=== PATIENT | male | born 1995 | race Two or more races ===

== ENCOUNTER 2017-07-10 14:29 | Emergency (ER) | payer BC ==
[2017-07-10] MEDS ORDERED: DIPH,PERTUS(ACELL)TETVAC-LF 0.5 ML VIAL IM ONE (14:55)
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
[2017-07-10 15:44] VITALS: BP 130/68; PULSE 98; RESP 18; TEMP 98.7
== END 2017-07-10 15:54 | disposition home or self-care (01) ==
LOC: EC 14:29
DX: S61.412A Laceration without foreign body of left hand, initial encounter (principal); S61.411A Laceration without foreign body of right hand, initial encounter; Z23 Encounter for immunization; V89.2XXA Person injured in unspecified motor-vehicle accident, traffic, initial encounter; Y92.410 Unspecified street and highway as the place of occurrence of the external cause
CPT/HCPCS: 90471; 90715; 99282

== ENCOUNTER 2019-05-03 21:48 | Emergency (ER) | payer BC ==
[2019-05-03 21:55] VITALS: RESP 18; TEMP 99.7
--- NOTE | 2019-05-03 22:17 | XR ---
EXAMINATION TYPE: XR forearm LT DATE OF EXAM: 05/03/2019 COMPARISON: NONE HISTORY: Forearm pain TECHNIQUE: 2 views FINDINGS: Radius and ulna appear intact. I see no fracture nor dislocation. Joint spaces are normal. IMPRESSION: Negative left forearm exam.
--- NOTE | 2019-05-03 22:33 | ED ---
Upper Extremity HPI - General Chief Complaint: Extremity Injury, Upper Stated Complaint: arm pain Time Seen by Provider: 05/03/19 21:56 Source: patient Mode of arrival: ambulatory Limitations: no limitations - History of Present Illness Initial Comments: 23-year-old male presented for left forearm pain. Patient states the drill fall onto his left dorsal aspect of forearm on Wednesday when he moved a ladder the drill fall from the top striking the forearm. Patient states there is a bruise there. Patient states the pain is persistent and there is a lump. He denies any swelling of the arm. Denies numbness tingling loss sensation or pallor. ADmit to pain with pronation/supination. Patient denies any injury to the hand and wrist elbow. Patient denies any lacerations the patient's. Remaining the system negative. Upon arrival patient appears well signs of acute distress. Denies any other areas of injury including head injury. - Related Data Home Medications Medication Instructions Recorded Confirmed No Known Home Medications 07/10/17 07/10/17 Allergies Allergy/AdvReac Type Severity Reaction Status Date / Time No Known Allergies Allergy Verified 07/10/17 14:47 Review of Systems ROS Statement: Those systems with pertinent positive or pertinent negative responses have been documented in the HPI. ROS Other: All systems not noted in ROS Statement are negative. Past Medical History Past Medical History: No Reported History History of Any Multi-Drug Resistant Organisms: None Reported Past Surgical History: No Surgical Hx Reported Past Psychological History: No Psychological Hx Reported Smoking Status: Current some day smoker Past Alcohol Use History: Occasional Past Drug Use History: Marijuana General Exam - General Exam Comments Initial Comments: General: The patient is awake and alert, in no distress, and does not appear acutely ill. Eye: Pupils are equal, round and reactive to light, extra-ocular movements are intact. No nystagmus. There is normal conjunctiva bilaterally. No signs of icterus. Cardiovascular: There is a regular rate and rhythm. No murmur, rub or gallop is appreciated. Respiratory: Lungs are clear to auscultation, respirations are non-labored, breath sounds are equal. No wheezes, stridor, rales, or rhonchi. Musculoskeletal: Normal ROM, no tenderness wrist and elbow. Strength 5/5. Sensation intact. Radial pulses equal bilaterally 2+. Able to make the fingers crossed thumbs up okay sign and a posterior small digit and thumb Neurological: A&O x 3. CN II-XII intact grossly, There are no obvious motor or sensory deficits. Coordination appears grossly intact. Speech is normal. Skin: Skin is warm and dry and no rashes. Raised area of the dorsum of the left forearm roughly 3x2cm. no redness, tender to touch. No laceration abrasion. Psychiatric: Cooperative, appropriate mood & affect, normal judgment. Limitations: no limitations Course Vital Signs 05/03/19 05/03/19 21:53 22:38 Temperature 99.7 F H Pulse Rate 116 H 85 Respiratory 18 18 Rate Blood Pressure 141/81 130/61 O2 Sat by Pulse 100 97 Oximetry Medical Decision Making - Medical Decision Making 24-year-old male presenting for blunt trauma to the left forearm. X-ray negative for acute process. Neurovascularly intact. Contusion present on physical examination. Patient be discharged with primary care follow-up. Return primary's discussed patient agreeable and discharged appearing well with rice instruction Disposition Clinical Impression: Contusion of left forearm Disposition: HOME SELF-CARE Condition: Good Instructions (If sedation given, give patient instructions): Contusion in Adults (ED) Additional Instructions: Please use medication as discussed. Please follow-up with family doctor in the next 2 days. Please return to emergency room if the symptoms increase or worsen or for any other concerns. Is patient prescribed a controlled substance at d/c from ED?: No Referrals: Ashley Johnston MD [Primary Care Provider] - 1-2 days Time of Disposition: 22:34
[2019-05-03 22:38] VITALS: BP 130/61; PULSE 85
== END 2019-05-03 22:41 | disposition home or self-care (01) ==
LOC: EC 21:48
DX: S50.12XA Contusion of left forearm, initial encounter (principal); F17.200 Nicotine dependence, unspecified, uncomplicated; W18.09XA Striking against other object with subsequent fall, initial encounter
CPT/HCPCS: 99283

== ENCOUNTER 2019-09-21 14:59 | Inpatient (IN) | payer BC ==
[2019-09-21 15:35] LABS: Glucose,Whole Blood 131 mg/dL (75-99)
--- NOTE | 2019-09-21 15:38 | ED ---
General Adult HPI - General Chief complaint: Fall Stated complaint: Fall off of roof Time Seen by Provider: 09/21/19 15:26 Source: patient Mode of arrival: ambulatory Limitations: no limitations - History of Present Illness Initial comments: Dictation was produced using [employer] dictation software. please excuse any grammatical, word or spelling errors. Chief Complaint: 24-year-old male presents after fall. History of Present Illness: 24-year-old male he presents after fall. 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 Patient states he had the wind knocked out of him. He states that his symptoms are improved however he does have persistent left lateral back pain and left-sided chest pain. Patient has a numbness and paresthesias. Patient denies any medical problems. No surgical history. Denies any abdominal pain. Patient denies any shortness of breath currently. The ROS documented in this emergency department record has been reviewed and confirmed by me. Those systems with pertinent positive or negative responses have been documented in the HPI. All other systems are other negative and/or noncontributory. PHYSICAL EXAM: General Impression: Alert and oriented x3, not in acute distress, c-collar in place HEENT: Normocephalic atraumatic, extra-ocular movements intact, pupils equal and reactive to light bilaterally, mucous membranes moist. Cardiovascular: Heart regular rate and rhythm, S1&S2 audible, no murmurs, rubs or gallops Chest: Lungs clear to auscultation bilaterally, no rhonchi, no wheeze, no rales Abdomen: Bowel sounds present, abdomen soft, non-tender, non-distended, no organomegaly Musculoskeletal: Pulses present and equal in all extremities, no peripheral edema, no mid C-spine tenderness, no step-offs crepitus deformities to the spine, tenderness to palpation over the left lateral chest Motor: no focal d eficits noted : No blood at the meatus, no perineal ecchymoses Neurological: CN II-XII grossly intact, no focal motor or sensory deficits noted Skin: Intact with no visualized rashes Psych: Normal affect and mood ED course: 24 yo Male presents after fall approximately 25 feet. Patient's activated level II trauma. Vital signs upon arrival shows heart rate of 114, respiratory signs within acceptable limits. No gross deformity seen on physical examination. Patient was seen and evaluated the ATLS protocol. FAST exam was negative Laboratory evaluation obtained. Leukocytosis of 20.5 x 2 secondary to stress. Rest of CBC is unremarkable. Coag panel negative. Metabolic panel shows mild lactic acidosis 2.6. AST is 70 from probably mild drinking. Rest of labs are nonacute. Serum alcohol is negative. CT of the chest abdomen pelvis shows multiple left-sided rib fractures with mild hemothorax. Computed tomography scan of the head and C-spine is unremarkable. Patient is Dr. Yu was went except patient's care. Patient given IV analgesia. Patient will be admitted. EKG interpretation: Ventricular rate 97, normal sinus rhythm, DC interval 156, QRS 96, QTC 436. No DC prolongation, no QTC prolongation, no ST or T-wave changes noted. Overall, this EKG is unremarkable - Related Data Home Medications Medication Instructions Recorded Confirmed No Known Home Medications 07/10/17 07/10/17 Allergies Allergy/AdvReac Type Severity Reaction Status Date / Time No Known Allergies Allergy Verified 09/21/19 15:06 Review of Systems ROS Statement: Those systems with pertinent positive or pertinent negative responses have been documented in the HPI. ROS Other: All systems not noted in ROS Statement are negative. Past Medical History Past Medical History: No Reported History History of Any Multi-Drug Resistant Organisms: None Reported Past Surgical History: No Surgical Hx Reported Past Psychological History: No Psychological Hx Reported Smoking Status: Current some day smoker Past Alcohol Use History: Occasional Past Drug Use History: Marijuana General Exam Limitations: no limitations Course Vital Signs 09/21/19 15:06 Temperature 98.3 F Pulse Rate 114 H Respiratory 20 Rate Blood Pressure 129/58 O2 Sat by Pulse 100 Oximetry Medical Decision Making - Lab Data Result diagrams: 09/21/19 15:22 09/21/19 15:22 Lab Results 09/21/19 09/21/19 09/21/19 Range/Units 15:20 15:22 15:22 WBC 20.5 H (3.8-10.6) k/uL RBC 5.26 (4.30-5.90) m/uL Hgb 16.3 (13.0-17.5) gm/dL Hct 46.1 (39.0-53.0) % MCV 87.7 (80.0-100.0) fL MCH 30.9 (25.0-35.0) pg MCHC 35.2 (31.0-37.0) g/dL RDW 12.1 (11.5-15.5) % Plt Count 328 (150-450) k/uL Neutrophils % 64 % Lymphocytes % 28 % Monocytes % 4 % Eosinophils % 2 % Basophils % 0 % Neutrophils # 13.1 H (1.3-7.7) k/uL Lymphocytes # 5.8 H (1.0-4.8) k/uL Monocytes # 0.7 (0-1.0) k/uL Eosinophils # 0.4 (0-0.7) k/uL Basophils # 0.1 (0-0.2) k/uL PT (9.0-12.0) sec INR (<1.2) APTT (22.0-30.0) sec Sodium 138 (137-145) mmol/L Potassium 3.7 (3.5-5.1) mmol/L Chloride 102 (98-107) mmol/L Carbon Dioxide 25 (22-30) mmol/L Anion Gap 11 mmol/L BUN 17 (9-20) mg/dL Creatinine 0.72 (0.66-1.25) mg/dL Est GFR (CKD-EPI)AfAm >90 (>60 ml/min/1.73 sqM) Est GFR (CKD-EPI)NonAf >90 (>60 ml/min/1.73 sqM) Glucose 118 H (74-99) mg/dL POC Glucose (mg/dL) (75-99) mg/dL POC Glu [employer] ID Plasma Lactic Acid Christian (0.7-2.0) mmol/L Calcium 9.2 (8.4-10.2) mg/dL Total Bilirubin 1.0 (0.2-1.3) mg/dL AST 70 H (17-59) U/L ALT 47 (4-49) U/L Alkaline Phosphatase 88 (38-126) U/L Total Creatine Kinase (55-170) U/L CK-MB (CK-2) (0.0-2.4) ng/mL CK-MB (CK-2) Rel Index Troponin I (0.000-0.034) ng/mL Total Protein 8.1 (6.3-8.2) g/dL Albumin 4.8 (3.5-5.0) g/dL Amylase 88 (30-110) U/L Lipase 56 (23-300) U/L Serum Alcohol <10 mg/dL Blood Type Blood Type Confirm O Positive Blood Type Recheck Bld Type Recheck Status Antibody Screen Spec Expiration Date 09/21/19 09/21/19 09/21/19 Range/Units 15:22 15:22 15:22 WBC (3.8-10.6) k/uL RBC (4.30-5.90) m/uL Hgb (13.0-17.5) gm/dL Hct (39.0-53.0) % MCV (80.0-100.0) fL MCH (25.0-35.0) pg MCHC (31.0-37.0) g/dL RDW (11.5-15.5) % Plt Count (150-450) k/uL Neutrophils % % Lymphocytes % % Monocytes % % Eosinophils % % Basophils % % Neutrophils # (1.3-7.7) k/uL Lymphocytes # (1.0-4.8) k/uL Monocytes # (0-1.0) k/uL Eosinophils # (0-0.7) k/uL Basophils # (0-0.2) k/uL PT (9.0-12.0) sec INR (<1.2) APTT (22.0-30.0) sec Sodium (137-145) mmol/L Potassium (3.5-5.1) mmol/L Chloride (98-107) mmol/L Carbon Dioxide (22-30) mmol/L Anion Gap mmol/L BUN (9-20) mg/dL Creatinine (0.66-1.25) mg/dL Est GFR (CKD-EPI)AfAm (>60 ml/min/1.73 sqM) Est GFR (CKD-EPI)NonAf (>60 ml/min/1.73 sqM) Glucose (74-99) mg/dL POC Glucose (mg/dL) (75-99) mg/dL POC Glu [employer] ID Plasma Lactic Acid Christian 3.6 H* (0.7-2.0) mmol/L Calcium (8.4-10.2) mg/dL Total Bilirubin (0.2-1.3) mg/dL AST (17-59) U/L ALT (4-49) U/L Alkaline Phosphatase (38-126) U/L Total Creatine Kinase 714 H (55-170) U/L CK-MB (CK-2) 9.9 H (0.0-2.4) ng/mL CK-MB (CK-2) Rel Index 1.4 Troponin I <0.012 (0.000-0.034) ng/mL Total Protein (6.3-8.2) g/dL Albumin (3.5-5.0) g/dL Amylase (30-110) U/L Lipase (23-300) U/L Serum Alcohol mg/dL Blood Type O Positive Blood Type Confirm Blood Type Recheck No Previous Record Bld Type Recheck Status CABO Indicated Antibody Screen NEGATIVE Spec Expiration Date 09/24/2019 - 232109/21/19 09/21/19 Range/Units 15:33 15:57 WBC (3.8-10.6) k/uL RBC (4.30-5.90) m/uL Hgb (13.0-17.5) gm/dL Hct (39.0-53.0) % MCV (80.0-100.0) fL MCH (25.0-35.0) pg MCHC (31.0-37.0) g/dL RDW (11.5-15.5) % Plt Count (150-450) k/uL Neutrophils % % Lymphocytes % % Monocytes % % Eosinophils % % Basophils % % Neutrophils # (1.3-7.7) k/uL Lymphocytes # (1.0-4.8) k/uL Monocytes # (0-1.0) k/uL Eosinophils # (0-0.7) k/uL Basophils # (0-0.2) k/uL PT 10.2 (9.0-12.0) sec INR 1.0 (<1.2) APTT 21.2 L (22.0-30.0) sec Sodium (137-145) mmol/L Potassium (3.5-5.1) mmol/L Chloride (98-107) mmol/L Carbon Dioxide (22-30) mmol/L Anion Gap mmol/L BUN (9-20) mg/dL Creatinine (0.66-1.25) mg/dL Est GFR (CKD-EPI)AfAm (>60 ml/min/1.73 sqM) Est GFR (CKD-EPI)NonAf (>60 ml/min/1.73 sqM) Glucose (74-99) mg/dL POC Glucose (mg/dL) 131 H (75-99) mg/dL POC Glu [employer] Balbir Villanueva Plasma Lactic Acid Christian (0.7-2.0) mmol/L Calcium (8.4-10.2) mg/dL Total Bilirubin (0.2-1.3) mg/dL AST (17-59) U/L ALT (4-49) U/L Alkaline Phosphatase (38-126) U/L Total Creatine Kinase (55-170) U/L CK-MB (CK-2) (0.0-2.4) ng/mL CK-MB (CK-2) Rel Index Troponin I (0.000-0.034) ng/mL Total Protein (6.3-8.2) g/dL Albumin (3.5-5.0) g/dL Amylase (30-110) U/L Lipase (23-300) U/L Serum Alcohol mg/dL Blood Type Blood Type Confirm Blood Type Recheck Bld Type Recheck Status Antibody Screen Spec Expiration Date Disposition Clinical Impression: Fall, Hemothorax on left, Rib fracture Disposition: ADMITTED IP TO THIS [facility] Condition: Fair Referrals: Ashley Johnston MD [Primary Care Provider] - 1-2 days Decision Time: 17:29
--- NOTE | 2019-09-21 15:45 | XR ---
EXAMINATION TYPE: XR pelvis AP view DATE OF EXAM: 09/21/2019 CLINICAL HISTORY: Pelvic pain after fall TECHNIQUE: A single AP view of the pelvis is obtained. COMPARISON: None. FINDINGS: There is no acute fracture/dislocation evident in the pelvis. The hip and sacroiliac join ts appear symmetric and unremarkable. The overlying soft tissue appears unremarkable. IMPRESSION: There is no acute fracture or dislocation in the pelvis.
--- NOTE | 2019-09-21 15:47 | XR ---
EXAMINATION TYPE: XR chest 1V portable DATE OF EXAM: 09/21/2019 COMPARISON: NONE HISTORY: Chest pain after fall TECHNIQUE: Single frontal view of the chest is obtained. FINDINGS: There is an acute displaced fracture of the lateral margins of ribs 3 on the left. No pneu mothorax is seen. Cardiomediastinal silhouette is within normal limits. No focal consolidation, pleur al effusion or pneumothorax. IMPRESSION: Acute displaced left lateral rib 3 fracture. No additional acute cardiopulmonary process seen.
[2019-09-21 15:50] LABS: Basophils # (A) 0.1 k/uL (0-0.2); Basophils % (A) 0 %; Eosinophils # (A) 0.4 k/uL (0-0.7); Eosinophils % (A) 2 %; HCT 46.1 % (39.0-53.0); HGB 16.3 gm/dL (13.0-17.5); Lymphocytes # (A) 5.8 k/uL (1.0-4.8); Lymphocytes % (A) 28 %; MCH 30.9 pg (25.0-35.0); MCHC 35.2 g/dL (31.0-37.0); MCV 87.7 fL (80.0-100.0); Monocytes # (A) 0.7 k/uL (0-1.0); Monocytes % (A) 4 %; Neutrophils # (A) 13.1 k/uL (1.3-7.7); Neutrophils % (A) 64 %; Platelet Count 328 k/uL (150-450); RBC 5.26 m/uL (4.30-5.90); RDW 12.1 % (11.5-15.5); WBC 20.5 k/uL (3.8-10.6)
[2019-09-21] MEDS ORDERED: MORPHINE SULFATE 4 MG/ML SYRINGE IV STA (15:51)
[2019-09-21] MEDS ORDERED: ONDANSETRON 4 MG/2 ML VIAL IVP STA (15:51)
[2019-09-21 16:05] LABS: ALT 47 U/L (4-49); AST 70 U/L (17-59); African American GFR (CKD) >90 (>60 ml/min/1.73 sqM); Albumin 4.8 g/dL (3.5-5.0); Alcohol <10 mg/dL; Alkaline Phosphatase 88 U/L (38-126); Amylase 88 U/L (30-110); Anion Gap 11 mmol/L; Blood Urea Nitrogen 17 mg/dL (9-20); Calcium 9.2 mg/dL (8.4-10.2); Carbon Dioxide 25 mmol/L (22-30); Chloride 102 mmol/L (98-107); Glucose 118 mg/dL (74-99); Non-African American GFR(CKD) >90 (>60 ml/min/1.73 sqM); Potassium 3.7 mmol/L (3.5-5.1); Sodium 138 mmol/L (137-145); Total Protein 8.1 g/dL (6.3-8.2)
[2019-09-21 16:08] LABS: Creatine Kinase 714 U/L (55-170)
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
[2019-09-21 16:21] LABS: Creatine Kinase MB 9.9 ng/mL (0.0-2.4); Troponin I <0.012 ng/mL (0.000-0.034)
[2019-09-21] MEDS ORDERED: ONDANSETRON 4 MG/2 ML VIAL IVP PRN (16:37)
[2019-09-21] MEDS ORDERED: LACTATED RINGERS 1,000 ML IV ONE (16:37)
[2019-09-21] MEDS ORDERED: NALOXONE 0.4 MG/ML 1 ML VIAL IV PRN ×2 (16:37→17:25)
[2019-09-21] MEDS ORDERED: ALPRAZolam 0.25 MG TAB PO PRN (16:37)
--- NOTE | 2019-09-21 16:49 | P.GSHP ---
History of Present Illness H&P Date: 09/21/19 Chief Complaint: Fall with rib fracture 24-year-old male presents to the ER as a priority to trauma. Patient was driven by his family to the hospital after he fell from a roof while cleaning the gutters. Patient states he felt 20-25 feet and landed on the dirt and grass. Patient hit the left side of his body on the ground. Patient complaining of pain in the left lateral chest and left shoulder. No LOC. No alcohol use per patient. Patient denies any numbness or tingling. No motor or sensory deficits. Some discomfort with inspiration but no shortness of breath. Patient had a chest x-ray showing rib fracture. CT chest abdomen and pelvis shows fractures of second third and seventh rib with small hemothorax. CT brain and C-spine looks good. Pelvis x-ray looks good. Has an abrasion left lateral knee but no pain there. - Review of Systems Comment: The patient denies any acute changes in vision or hearing, no dysphagia or odynophagia, no shortness of breath, no dysuria or hematuria, no headache, no runny nose, no rectal bleeding or melena, no unexplained weight loss Past Medical History Past Medical History: No Reported History History of Any Multi-Drug Resistant Organisms: None Reported Past Surgical History: No Surgical Hx Reported Past Psychological History: No Psychological Hx Reported Smoking Status: Current some day smoker Past Alcohol Use History: Occasional Past Drug Use History: Marijuana Medications and Allergies Home Medications Medication Instructions Recorded Confirmed Type No Known Home Medications 07/10/17 07/10/17 History Allergies Allergy/AdvReac Type Severity Reaction Status Date / Time No Known Allergies Allergy Verified 09/21/19 15:06 Surgical - Exam Vital Signs Temp Pulse Resp BP Pulse Ox 98.3 F 114 H 20 129/58 100 09/21/19 15:06 09/21/19 15:06 09/21/19 15:06 09/21/19 15:06 09/21/19 15:06 Physical exam: General: Well-developed, well-nourished HEENT: Normocephalic, sclerae nonicteric, subtle swelling left maxillary region without tenderness, pupils equal and reactive Chest: Equal breath sounds, left-sided chest tenderness Abdomen: Nontender, nondistended Extremities: No edema, no motor or sensory deficits noted, small abrasion left lateral knee Neuro: Alert and oriented Results - Labs 09/21/19 15:22 09/21/19 15:22 Abnormal Lab Results - Last 24 Hours (Table) 09/21/19 09/21/19 09/21/19 Range/Units 15:22 15:22 15:22 WBC 20.5 H (3.8-10.6) k/uL Neutrophils # 13.1 H (1.3-7.7) k/uL Lymphocytes # 5.8 H (1.0-4.8) k/uL Glucose 118 H (74-99) mg/dL POC Glucose (mg/dL) (75-99) mg/dL Plasma Lactic Acid Christian (0.7-2.0) mmol/L AST 70 H (17-59) U/L Total Creatine Kinase 714 H (55-170) U/L CK-MB (CK-2) 9.9 H (0.0-2.4) ng/mL 09/21/19 09/21/19 Range/Units 15:22 15:33 WBC (3.8-10.6) k/uL Neutrophils # (1.3-7.7) k/uL Lymphocytes # (1.0-4.8) k/uL Glucose (74-99) mg/dL POC Glucose (mg/dL) 131 H (75-99) mg/dL Plasma Lactic Acid Christian 3.6 H* (0.7-2.0) mmol/L AST (17-59) U/L Total Creatine Kinase (55-170) U/L CK-MB (CK-2) (0.0-2.4) ng/mL Diabetes panel 09/21/19 Range/Units 15:22 Sodium 138 (137-145) mmol/L Potassium 3.7 (3.5-5.1) mmol/L Chloride 102 (98-107) mmol/L Carbon Dioxide 25 (22-30) mmol/L BUN 17 (9-20) mg/dL Creatinine 0.72 (0.66-1.25) mg/dL Glucose 118 H (74-99) mg/dL Calcium 9.2 (8.4-10.2) mg/dL AST 70 H (17-59) U/L ALT 47 (4-49) U/L Alkaline Phosphatase 88 (38-126) U/L Total Protein 8.1 (6.3-8.2) g/dL Albumin 4.8 (3.5-5.0) g/dL Calcium panel 09/21/19 Range/Units 15:22 Calcium 9.2 (8.4-10.2) mg/dL Albumin 4.8 (3.5-5.0) g/dL Pituitary panel 09/21/19 Range/Units 15:22 Sodium 138 (137-145) mmol/L Potassium 3.7 (3.5-5.1) mmol/L Chloride 102 (98-107) mmol/L Carbon Dioxide 25 (22-30) mmol/L BUN 17 (9-20) mg/dL Creatinine 0.72 (0.66-1.25) mg/dL Glucose 118 H (74-99) mg/dL Calcium 9.2 (8.4-10.2) mg/dL Adrenal panel 09/21/19 Range/Units 15:22 Sodium 138 (137-145) mmol/L Potassium 3.7 (3.5-5.1) mmol/L Chloride 102 (98-107) mmol/L Carbon Dioxide 25 (22-30) mmol/L BUN 17 (9-20) mg/dL Creatinine 0.72 (0.66-1.25) mg/dL Glucose 118 H (74-99) mg/dL Calcium 9.2 (8.4-10.2) mg/dL Total Bilirubin 1.0 (0.2-1.3) mg/dL AST 70 H (17-59) U/L ALT 47 (4-49) U/L Alkaline Phosphatase 88 (38-126) U/L Total Protein 8.1 (6.3-8.2) g/dL Albumin 4.8 (3.5-5.0) g/dL Assessment and Plan (1) Hemothorax on left Narrative/Plan: 24-year-old male with multiple left-sided rib fractures and small hemothorax. Will admit to the hospital for observation. Recheck chest x-ray tomorrow. Consults to anesthesia, hospitalist, drastic surgery. GI and DVT prophylaxis. Continue analgesics. Continue pulmonary toilet with incentive spirometry. Current Visit: Yes Status: Acute Code(s): J94.2 - HEMOTHORAX SNOMED Code(s): 65128206
[2019-09-21 16:50] LABS: Prothrombin Time 10.2 sec (9.0-12.0)
[2019-09-21 16:52] LABS: Partial Thromboplastin Time 21.2 sec (22.0-30.0)
[2019-09-21] MEDS ORDERED: LIDOCAINE 5% PATCH TOPICAL STA (17:27)
[2019-09-21] MEDS ORDERED: KETOROLAC 30 MG/ML 1 ML VIAL IVP SCH (18:00)
--- NOTE | 2019-09-21 19:36 | P.PAINCN ---
History of Present Illness - Reason for Consult Consult date: 09/21/19 - History of Present Illness This is 24 years old male with a chief complaint of chest wall pain, on the left side, pain started after he fell from the roof while he was cleaning the gutters, computed tomography scan of the chest showed that he had second and third and seventh rib fractures with a small pneumothorax, a Ubrch reported that his chest pain mainly in the posterior aspect of the chest on the left side and it radiated to the front, pain increased with deep breathing Past Medical History Past Medical History: No Reported History History of Any Multi-Drug Resistant Organisms: None Reported Past Surgical History: No Surgical Hx Reported Past Psychological History: No Psychological Hx Reported Smoking Status: Current some day smoker Past Alcohol Use History: Occasional Past Drug Use History: Marijuana Medications and Allergies Home Medications Medication Instructions Recorded Confirmed Type No Known Home Medications 07/10/17 09/21/19 History Allergies Allergy/AdvReac Type Severity Reaction Status Date / Time No Known Allergies Allergy Verified 09/21/19 18:07 Physical Exam Vitals: Vital Signs Temp Pulse Resp BP Pulse Ox 09/21/19 15:06 98.3 F 114 H 20 129/58 100 Intake and Output 09/21/19 09/21/19 09/21/19 06:59 14:59 22:59 Other: Weight 77.111 kg Physical Examinations : -Constitutiona : Cooperative , not in acute distress . -HEENT : nech : supple , no Lymphadenopathy , normal thyroid size . : eyes : no ptosis , no icterus, no photophobia . : ENT : normal of hearing , normal oropharynx , no Thrush . - Respiratory : Chest clear to auscultations Bilaterally , severe tenderness over the left side of the chest wall - Cardiovascula : regular rate and rhythem , S1 , S2 , no S3 , no S4. - Gastrointestina : abdomen soft no tenderness , bowel sounds , no organomegally . - Genitourinary : Defferred . - neurologic : Cranial nerve II to XII intact , no focal neurological deffecit . -psychatric : alert , oriented X 3 , appropriate affect , intact judgment and insight . -Lymphatic : no Lymphadenopathy . - musculoskeltal : Lumber spine moter stegnth lower extremities ,thigh and legs 5/5 Right side , 5/5 Left side Results CBC & Chem 7: 09/21/19 15:22 09/21/19 15:22 Labs: Abnormal Lab Results - Last 24 Hours (Table) 09/21/19 09/21/19 09/21/19 Range/Units 15:22 15:22 15:22 WBC 20.5 H (3.8-10.6) k/uL Neutrophils # 13.1 H (1.3-7.7) k/uL Lymphocytes # 5.8 H (1.0-4.8) k/uL APTT (22.0-30.0) sec Glucose 118 H (74-99) mg/dL POC Glucose (mg/dL) (75-99) mg/dL Plasma Lactic Acid Christian (0.7-2.0) mmol/L AST 70 H (17-59) U/L Total Creatine Kinase 714 H (55-170) U/L CK-MB (CK-2) 9.9 H (0.0-2.4) ng/mL 09/21/19 09/21/19 09/21/19 Range/Units 15:22 15:33 15:57 WBC (3.8-10.6) k/uL Neutrophils # (1.3-7.7) k/uL Lymphocytes # (1.0-4.8) k/uL APTT 21.2 L (22.0-30.0) sec Glucose (74-99) mg/dL POC Glucose (mg/dL) 131 H (75-99) mg/dL Plasma Lactic Acid Christian 3.6 H* (0.7-2.0) mmol/L AST (17-59) U/L Total Creatine Kinase (55-170) U/L CK-MB (CK-2) (0.0-2.4) ng/mL Assessment and Plan Plan: Assessment and plan= chest wall pain secondary to multiple rib fractures on the left side Recommended continue [place] 5/325 every 4-6 hours when necessary, increase Toradol to 30 mg every 6 hours when necessary Lidoderm patch 5% 12 hours on 12 hours off If the above measures did not control the pain appropriately patient will be good candidate for thoracic epidural for pain control Reevaluated the patient's tomorrow morning Time with Patient: Greater than 30 PQRS Measure Charge Sheet PQRS Narrative: Smoking Status Current some day smoker Blood Pressure 129/58 Pain Intensity 9 Pain Scale Used Numeric (1 - 10) Scale Used Numeric (1 - 10) Home Medications: Ambulatory Orders No Known Home Medications 07/10/17
[2019-09-21] MEDS: HYDROcodone/APAP 5-325MG 1 EACH TAB PO PRN (22:35)
[2019-09-21] MEDS: BACITRACIN 500 UNIT/GM OINT 28.4 GM TUBE TOPICAL SCH (22:38)
[2019-09-22] MEDS: HEPARIN SODIUM,PORCINE 5,000 UNIT/ML 1 ML VIAL SQ SCH ×2 (01:03→08:27)
[2019-09-22] MEDS: KETOROLAC 30 MG/ML 1 ML VIAL IVP SCH ×3 (01:03→11:35)
[2019-09-22] MEDS: DOCUSATE 100 MG CAP PO SCH ×2 (01:04→08:27)
[2019-09-22] MEDS: HYDROcodone/APAP 5-325MG 1 EACH TAB PO PRN ×3 (04:59→15:32)
[2019-09-22 07:07] LABS: Appearance,Urine Clear (Clear); Bilirubin,Urine Negative (Negative); Blood,Urine Negative (Negative); Color,Urine Yellow; Glucose,Urine (UA) Negative (Negative); Ketones,Urine Negative (Negative); Leukocyte Esterase,Urine Negative (Negative); Mucus,Urine Many /hpf; Nitrite,Urine Negative (Negative); PH, Urine 6.5 (5.0-8.0); Protein,Urine 1+ (Negative); RBC,Urine <1 /hpf (0-5); Squamous Epithelial Cell,Urine <1 /hpf (0-4); Urobilinogen,Urine <2.0 mg/dL (<2.0); WBC,Urine 5 /hpf (0-5)
--- NOTE | 2019-09-22 07:18 | XR ---
EXAMINATION TYPE: XR chest 2V DATE OF EXAM: 09/22/2019 COMPARISON: 09/21/2019 CT and x-ray HISTORY: Fall from ladder. Follow-up for pneumothorax. TECHNIQUE: Frontal and lateral views of the chest are obtained. FINDINGS: There is redemonstration of an acute displaced fracture of rib 3 on the left. The acute no ndisplaced fracture of the anterior left second rib and left seventh rib are better seen on CT are no t visualized radiographically as there are nondisplaced. The tiny adjacent pneumothorax (approximatel y 3 mm on the prior CT) is not visualized on x-ray. Scattered bibasilar linear atelectasis is seen wi th suboptimal lung volumes. IMPRESSION: Interval development of bibasilar subsegmental atelectasis. Redemonstration of a displac ed acute left third rib fracture. Knee punctate adjacent pneumothorax on CT is not visualized on x-ra y.
[2019-09-22 07:20] LABS: Amphetamine Screen,Urine Not Detected (NotDetected); Benzodiazepines Screen,Urine Detected (NotDetected); Cocaine Screen,Urine Not Detected (NotDetected); Opiate Screen,Urine Detected (NotDetected); Phencyclidine Screen,Urine Not Detected (NotDetected); Urn Cannabinoid Scrn Detected (NotDetected)
[2019-09-22 07:21] LABS: Barbiturate Screen,Urine Not Detected (NotDetected); Methadone Screen, Urine Not Detected (NotDetected); Oxycodone Screen, Urine Not Detected (NotDetected); Tricyclic Antidepressant,Urine Not Detected (NotDetected)
[2019-09-22 07:46] LABS: ALT 59 U/L (4-49); AST 134 U/L (17-59); African American GFR (CKD) >90 (>60 ml/min/1.73 sqM); Albumin 3.9 g/dL (3.5-5.0); Alkaline Phosphatase 66 U/L (38-126); Anion Gap 8 mmol/L; Blood Urea Nitrogen 13 mg/dL (9-20); Calcium 8.8 mg/dL (8.4-10.2); Carbon Dioxide 25 mmol/L (22-30); Chloride 105 mmol/L (98-107); Glucose 92 mg/dL (74-99); Non-African American GFR(CKD) >90 (>60 ml/min/1.73 sqM); Potassium 3.8 mmol/L (3.5-5.1); Sodium 138 mmol/L (137-145); Total Bilirubin 2.4 mg/dL (0.2-1.3); Total Protein 7.1 g/dL (6.3-8.2)
[2019-09-22 07:53] LABS: Basophils % (A) 0 %; Eosinophils # (A) 0.1 k/uL (0-0.7); Eosinophils % (A) 1 %; HCT 41.9 % (39.0-53.0); HGB 14.6 gm/dL (13.0-17.5); Lymphocytes # (A) 2.1 k/uL (1.0-4.8); Lymphocytes % (A) 20 %; MCH 30.4 pg (25.0-35.0); MCHC 34.8 g/dL (31.0-37.0); MCV 87.6 fL (80.0-100.0); Mean Platelet Volume 8.3; Monocytes # (A) 0.8 k/uL (0-1.0); Monocytes % (A) 8 %; Neutrophils # (A) 7.4 k/uL (1.3-7.7); Neutrophils % (A) 69 %; Platelet Count 248 k/uL (150-450); RBC 4.78 m/uL (4.30-5.90); RDW 12.1 % (11.5-15.5); WBC 10.7 k/uL (3.8-10.6)
[2019-09-22] MEDS: BACITRACIN 500 UNIT/GM OINT 28.4 GM TUBE TOPICAL SCH (08:27)
[2019-09-22] MEDS ORDERED: PANTOPRAZOLE 40 MG/10 ML VIAL IV SCH (09:00)
[2019-09-22 09:40] VITALS: TEMP 97.5
--- NOTE | 2019-09-22 10:43 | P.PN ---
<Kristi Elmore - Last Filed: 09/22/19 10:37> Subjective Progress Note Date: 09/22/19 CHIEF COMPLAINT: Trauma with rib fracture HISTORY OF PRESENT ILLNESS: Patient examined this morning at the bedside. Patient states his pain has tolerable at this time. Mostly in the left side of his chest. Patient is up ambulating in his room. He reports taking a shower this morning. Denies abdominal pain. Tolerating diet. Repeat x-ray today reveals interval development of bibasilar subsegmental atelectasis. Redemonstration of displaced acute left third rib fracture. Tiny adjacent pneumothorax seen on prior CAT scan not visualized on current x-ray. PHYSICAL EXAM: VITAL SIGNS: Reviewed. GENERAL: Well-developed in no acute distress. HEENT: No sclera icterus. Extraocular movements grossly intact. Moist buccal mucosa. Head is normocephalic. CHEST: No respiratory distress. Left sided chest tenderness. ABDOMEN: Soft. Nondistended. Nontender. NEUROLOGIC: Alert and oriented. Cranial nerves II through XII grossly intact. ASSESSMENT: 1. Trauma, status post fall 2. Multiple left-sided rib fractures 3. Small left hemothorax PLAN: -Continue current diet -Continue current pain management regimen -CTS consulted. Await evaluation -Incentive spirometer -Activity as tolerated -Possible discharge home this afternoon versus tomorrow Nurse practitioner note has been reviewed by physician. Signing provider agrees with the documented findings, assessment, and plan of care. Objective - Vital Signs Vital signs: Vital Signs Temp 97.5 F L 09/22/19 08:00 Pulse 76 09/22/19 08:00 Resp 18 09/22/19 08:00 BP 121/67 09/22/19 08:00 Pulse Ox 99 09/22/19 08:00 Intake & Output 09/21/19 09/22/19 09/22/19 18:59 06:59 18:59 Output Total 75 Balance -75 Weight 77.111 kg 75.5 kg Output: Urine 75 Other: Voiding Method Urinal Urinal # Voids 0 1 - Labs CBC & Chem 7: 09/22/19 06:20 09/22/19 06:20 Labs: Abnormal Lab Results - Last 24 Hours (Table) 09/21/19 09/21/19 09/21/19 Range/Units 06:55 15:22 15:22 WBC 20.5 H (3.8-10.6) k/uL Neutrophils # 13.1 H (1.3-7.7) k/uL Lymphocytes # 5.8 H (1.0-4.8) k/uL APTT (22.0-30.0) sec Creatinine (0.66-1.25) mg/dL Glucose 118 H (74-99) mg/dL POC Glucose (mg/dL) (75-99) mg/dL Plasma Lactic Acid Christian (0.7-2.0) mmol/L Total Bilirubin (0.2-1.3) mg/dL AST 70 H (17-59) U/L ALT (4-49) U/L Total Creatine Kinase (55-170) U/L CK-MB (CK-2) (0.0-2.4) ng/mL Urine Protein 1+ H (Negative) Urine Mucus Many H (None) /hpf Urine Opiates Screen Detected H (NotDetected) U Benzodiazepines Scrn Detected H (NotDetected) U Marijuana (THC) Screen Detected H (NotDetected) 09/21/19 09/21/19 09/21/19 Range/Units 15:22 15:22 15:33 WBC (3.8-10.6) k/uL Neutrophils # (1.3-7.7) k/uL Lymphocytes # (1.0-4.8) k/uL APTT (22.0-30.0) sec Creatinine (0.66-1.25) mg/dL Glucose (74-99) mg/dL POC Glucose (mg/dL) 131 H (75-99) mg/dL Plasma Lactic Acid Christian 3.6 H* (0.7-2.0) mmol/L Total Bilirubin (0.2-1.3) mg/dL AST (17-59) U/L ALT (4-49) U/L Total Creatine Kinase 714 H (55-170) U/L CK-MB (CK-2) 9.9 H (0.0-2.4) ng/mL Urine Protein (Negative) Urine Mucus (None) /hpf Urine Opiates Screen (NotDetected) U Benzodiazepines Scrn (NotDetected) U Marijuana (THC) Screen (NotDetected) 09/21/19 09/22/19 09/22/19 Range/Units 15:57 06:20 06:20 WBC 10.7 H (3.8-10.6) k/uL Neutrophils # (1.3-7.7) k/uL Lymphocytes # (1.0-4.8) k/uL APTT 21.2 L (22.0-30.0) sec Creatinine 0.54 L (0.66-1.25) mg/dL Glucose (74-99) mg/dL POC Glucose (mg/dL) (75-99) mg/dL Plasma Lactic Acid Christian (0.7-2.0) mmol/L Total Bilirubin 2.4 H (0.2-1.3) mg/dL AST 134 H (17-59) U/L ALT 59 H (4-49) U/L Total Creatine Kinase (55-170) U/L CK-MB (CK-2) (0.0-2.4) ng/mL Urine Protein (Negative) Urine Mucus (None) /hpf Urine Opiates Screen (NotDetected) U Benzodiazepines Scrn (NotDetected) U Marijuana (THC) Screen (NotDetected) <Roberto Yu - Last Filed: 09/22/19 14:48> Objective - Vital Signs Vital signs: Vital Signs Temp 97.5 F L 09/22/19 08:00 Pulse 76 09/22/19 08:00 Resp 18 09/22/19 08:00 BP 121/67 09/22/19 08:00 Pulse Ox 99 09/22/19 08:00 Intake & Output 09/21/19 09/22/19 09/22/19 18:59 06:59 18:59 Intake Total 0 Output Total 75 Balance -75 Weight 77.111 kg 75.5 kg Intake: Oral 0 Output: Urine 75 Other: Voiding Method Urinal Urinal # Voids 0 2 - Labs CBC & Chem 7: 09/22/19 06:20 09/22/19 06:20 Labs: Abnormal Lab Results - Last 24 Hours (Table) 09/21/19 09/21/19 09/21/19 Range/Units 06:55 15:22 15:22 WBC 20.5 H (3.8-10.6) k/uL Neutrophils # 13.1 H (1.3-7.7) k/uL Lymphocytes # 5.8 H (1.0-4.8) k/uL APTT (22.0-30.0) sec Creatinine (0.66-1.25) mg/dL Glucose 118 H (74-99) mg/dL POC Glucose (mg/dL) (75-99) mg/dL Plasma Lactic Acid Christian (0.7-2.0) mmol/L Total Bilirubin (0.2-1.3) mg/dL AST 70 H (17-59) U/L ALT (4-49) U/L Total Creatine Kinase (55-170) U/L CK-MB (CK-2) (0.0-2.4) ng/mL Urine Protein 1+ H (Negative) Urine Mucus Many H (None) /hpf Urine Opiates Screen Detected H (NotDetected) U Benzodiazepines Scrn Detected H (NotDetected) U Marijuana (THC) Screen Detected H (NotDetected) 09/21/19 09/21/19 09/21/19 Range/Units 15:22 15:22 15:33 WBC (3.8-10.6) k/uL Neutrophils # (1.3-7.7) k/uL Lymphocytes # (1.0-4.8) k/uL APTT (22.0-30.0) sec Creatinine (0.66-1.25) mg/dL Glucose (74-99) mg/dL POC Glucose (mg/dL) 131 H (75-99) mg/dL Plasma Lactic Acid Christian 3.6 H* (0.7-2.0) mmol/L Total Bilirubin (0.2-1.3) mg/dL AST (17-59) U/L ALT (4-49) U/L Total Creatine Kinase 714 H (55-170) U/L CK-MB (CK-2) 9.9 H (0.0-2.4) ng/mL Urine Protein (Negative) Urine Mucus (None) /hpf Urine Opiates Screen (NotDetected) U Benzodiazepines Scrn (NotDetected) U Marijuana (THC) Screen (NotDetected) 09/21/19 09/22/19 09/22/19 Range/Units 15:57 06:20 06:20 WBC 10.7 H (3.8-10.6) k/uL Neutrophils # (1.3-7.7) k/uL Lymphocytes # (1.0-4.8) k/uL APTT 21.2 L (22.0-30.0) sec Creatinine 0.54 L (0.66-1.25) mg/dL Glucose (74-99) mg/dL POC Glucose (mg/dL) (75-99) mg/dL Plasma Lactic Acid Christian (0.7-2.0) mmol/L Total Bilirubin 2.4 H (0.2-1.3) mg/dL AST 134 H (17-59) U/L ALT 59 H (4-49) U/L Total Creatine Kinase (55-170) U/L CK-MB (CK-2) (0.0-2.4) ng/mL Urine Protein (Negative) Urine Mucus (None) /hpf Urine Opiates Screen (NotDetected) U Benzodiazepines Scrn (NotDetected) U Marijuana (THC) Screen (NotDetected) Assessment and Plan (1) Hemothorax on left Current Visit: Yes Status: Acute Code(s): J94.2 - HEMOTHORAX SNOMED Code(s): 15028776
--- NOTE | 2019-09-22 12:52 | P.CONS ---
History of Present Illness - Reason for Consult ,leukocytosis - History of Present Illness patient is a pleasant 24-year-old gentleman had a fall from a ladder and found to have acute fractures patient is admitted to trauma service patient does have leukocytosis denied any fever chills chest x-ray did show seventh rib fracture along with second and third of fractures and a small hemothorax. CT of the bra in and C-spine are within normal limits pelvic x-ray did not show any pelvic fractures. Patient is still having pain but be fairly well controlled on oral medications. Patient is able to take fairly good deep breaths. Although he does have pleuritic chest pain Review of Systems REVIEW OF SYSTEMS: CONSTITUTIONAL: No fever, no malaise, no fatigue. HEENT: No recent visual problems or hearing problems. Denied any sore throat. CARDIOVASCULAR: No orthopnea, PND, no palpitations, no syncope. PULMONARY: No shortness of breath, no cough, no hemoptysis. GASTROINTESTINAL: No diarrhea, no nausea, no vomiting, no abdominal pain. NEUROLOGICAL: No headaches, no weakness, no numbness. HEMATOLOGICAL: Denies any bleeding or petechiae. GENITOURINARY: Denies any burning micturition, frequency, or urgency. MUSCULOSKELETAL/RHEUMATOLOGICAL: Denies any joint pain, swelling, or any muscle pain. ENDOCRINE: Denies any polyuria or polydipsia. The rest of the 14-point review of systems is negative. Past Medical History Past Medical History: No Reported History History of Any Multi-Drug Resistant Organisms: None Reported Past Surgical History: No Surgical Hx Reported Past Psychological History: No Psychological Hx Reported Smoking Status: Current some day smoker Past Alcohol Use History: Occasional Past Drug Use History: Marijuana Medications and Allergies Home Medications Medication Instructions Recorded Confirmed Type Hydrocodone/Acetaminophen [[place] 1 tab PO Q6HR PRN #10 tab 09/22/19 Rx 5-325] Allergies Allergy/AdvReac Type Severity Reaction Status Date / Time No Known Allergies Allergy Verified 09/21/19 18:07 Physical Exam Vitals: Vital Signs Temp Pulse Pulse Resp BP BP Pulse Ox 09/22/19 08:00 97.5 F L 76 18 121/67 99 09/22/19 04:00 91 18 135/77 98 09/22/19 00:00 98.8 F 72 89 18 129/90 118/78 98 09/21/19 21:00 98.0 F 105 H 18 127/84 100 09/21/19 20:00 98 18 119/73 100 09/21/19 19:00 98 18 118/82 100 09/21/19 15:06 98.3 F 114 H 20 129/58 100 Intake and Output 09/21/19 09/22/19 09/22/19 22:59 06:59 14:59 Output Total 75 Balance -75 Output: Urine 75 Other: Voiding Method Urinal Urinal # Voids 0 1 Weight 77.111 kg 75.5 kg PHYSICAL EXAMINATION: GENERAL: The patient is alert and oriented x3, not in any acute distress. Well developed, well nourished. HEENT: Pupils are round and equally reacting to light. EOMI. No scleral icterus. No conjunctival pallor. Normocephalic, atraumatic. No pharyngeal erythema. No thyromegaly. I'll bruising in the left maxillary area CARDIOVASCULAR: S1 and S2 present. No murmurs, rubs, or gallops. PULMONARY: Chest is clear to auscultation, no wheezing or crackles. ABDOMEN: Soft, nontender, nondistended, normoactive bowel sounds. No palpable organomegaly. MUSCULOSKELETAL: No joint swelling or deformity. EXTREMITIES: No cyanosis, clubbing, or pedal edema. NEUROLOGICAL: Gross neurological examination did not reveal any focal deficits. SKIN: No rashes. Results CBC & Chem 7: 09/22/19 06:20 09/22/19 06:20 Labs: Abnormal Lab Results - Last 24 Hours (Table) 09/21/19 09/21/19 09/21/19 Range/Units 06:55 15:22 15:22 WBC 20.5 H (3.8-10.6) k/uL Neutrophils # 13.1 H (1.3-7.7) k/uL Lymphocytes # 5.8 H (1.0-4.8) k/uL APTT (22.0-30.0) sec Creatinine (0.66-1.25) mg/dL Glucose 118 H (74-99) mg/dL POC Glucose (mg/dL) (75-99) mg/dL Plasma Lactic Acid Christian (0.7-2.0) mmol/L Total Bilirubin (0.2-1.3) mg/dL AST 70 H (17-59) U/L ALT (4-49) U/L Total Creatine Kinase (55-170) U/L CK-MB (CK-2) (0.0-2.4) ng/mL Urine Protein 1+ H (Negative) Urine Mucus Many H (None) /hpf Urine Opiates Screen Detected H (NotDetected) U Benzodiazepines Scrn Detected H (NotDetected) U Marijuana (THC) Screen Detected H (NotDetected) 09/21/19 09/21/19 09/21/19 Range/Units 15:22 15:22 15:33 WBC (3.8-10.6) k/uL Neutrophils # (1.3-7.7) k/uL Lymphocytes # (1.0-4.8) k/uL APTT (22.0-30.0) sec Creatinine (0.66-1.25) mg/dL Glucose (74-99) mg/dL POC Glucose (mg/dL) 131 H (75-99) mg/dL Plasma Lactic Acid Christian 3.6 H* (0.7-2.0) mmol/L Total Bilirubin (0.2-1.3) mg/dL AST (17-59) U/L ALT (4-49) U/L Total Creatine Kinase 714 H (55-170) U/L CK-MB (CK-2) 9.9 H (0.0-2.4) ng/mL Urine Protein (Negative) Urine Mucus (None) /hpf Urine Opiates Screen (NotDetected) U Benzodiazepines Scrn (NotDetected) U Marijuana (THC) Screen (NotDetected) 09/21/19 09/22/19 09/22/19 Range/Units 15:57 06:20 06:20 WBC 10.7 H (3.8-10.6) k/uL Neutrophils # (1.3-7.7) k/uL Lymphocytes # (1.0-4.8) k/uL APTT 21.2 L (22.0-30.0) sec Creatinine 0.54 L (0.66-1.25) mg/dL Glucose (74-99) mg/dL POC Glucose (mg/dL) (75-99) mg/dL Plasma Lactic Acid Christian (0.7-2.0) mmol/L Total Bilirubin 2.4 H (0.2-1.3) mg/dL AST 134 H (17-59) U/L ALT 59 H (4-49) U/L Total Creatine Kinase (55-170) U/L CK-MB (CK-2) (0.0-2.4) ng/mL Urine Protein (Negative) Urine Mucus (None) /hpf Urine Opiates Screen (NotDetected) U Benzodiazepines Scrn (NotDetected) U Marijuana (THC) Screen (NotDetected) Assessment and Plan Plan: -fall with fracture and primary contusion patient pain is better controlled and patient is feeling well probably will be discharged later today. -Marijuana use regular: Counseling was provided -leukocytosis secondary to fall no evidence of infection at this time no further testing is necessary.
--- NOTE | 2019-09-22 14:53 | P.DS ---
Providers Date of admission: 09/21/19 16:37 Expected date of discharge: 09/22/19 Attending physician: Roberto Yu Consults: 09/21/19 16:37 Consult Physician Routine Consulting Provider: Cristiane Dhillon Consult Reason/Comments: Hemothorax, rib fracture Do you want consulting provider notified?: Yes Consult Physician Routine Consulting Provider: Jazzy Noguera Consult Reason/Comments: Medical management Do you want consulting provider notified?: Yes Consult to Anesthesia Stat Consulting Provider: Anesthesia,Services Consult Reason/Comments: Rib fractures Primary care physician: Ashley Johnston - Discharge Diagnosis(es) (1) Hemothorax on left Please refer to history and physical and progress note from today's visit. Patient admitted after a fall. Was found have 3 rib fractures on the left-hand side with a small hemopneumothorax. Patient's pain is much improved. He would like to go home today. Only mild discomfort with coughing and sneezing. Spoke with consultants. He is cleared to go. Chest x-ray will be ordered for next week. He will follow-up with thoracic surgery next week as well. Patient told to come back to the hospital with any complaints of shortness of breath or syncopal episodes. Current Visit: Yes Status: Acute Patient Condition at Discharge: Fair Plan - Discharge Summary New Discharge Prescriptions: New Hydrocodone/Acetaminophen [[place] 5-325] 1 tab PO Q6HR PRN #10 tab PRN Reason: Pain Discharge Medication List Hydrocodone/Acetaminophen [[place] 5-325] 1 tab PO Q6HR PRN #10 tab 09/22/19 [Rx] Follow up Appointment(s)/Referral(s): Ashley Johnston MD [Primary Care Provider] - 1-2 days Ambulatory/Diagnostic Orders: XR chest 2V [RAD.AMB] Location: None Selected Patient Instructions/Handouts: Rib Fracture (DC)
--- NOTE | 2019-09-22 15:03 | P.GSCN ---
History of Present Illness Consult date: 09/22/19 Reason for Consult: Hemothorax, rib fracture Requesting physician: Roberto Yu History of present illness: This is a 24-year-old gentleman who follows on an outpatient basis with Dr. Johnston. He has no real medical history other than occasional marijuana and EtOH use. Apparently yesterday he was up on the roof cleaning gutters and fell off the roof approximately 20-25 feet landing on a dirt and grass. He hit the left side of his body on the ground. He noticed pain in the left lateral chest and shoulder area. He denied any loss of consciousness. His only real complaint was pain with deep inspiration, no other aggravating or alleviating factors. He presented to [facility] emergency room for evaluation and treatment. Chest x-ray demonstrated displaced left lateral rib fractures. CT of the chest demonstrated displaced left anterolateral third rib with adjacent tiny hemothorax, nondisplaced fracture of the anterior left second rib, and minimally displaced fracture of the left posterior seventh rib. He was admitted for further treatment and monitoring with consultation placed to internal medicine, anesthesia for pain control, and Dr. Dhillon from cardiothoracic surgery for fracture and hemothorax management. Review of Systems Review of systems was completed and was negative except as noted in the HPI Past Medical History Past Medical History: No Reported History History of Any Multi-Drug Resistant Organisms: None Reported Past Surgical History: No Surgical Hx Reported Past Psychological History: No Psychological Hx Reported Smoking Status: Current some day smoker Past Alcohol Use History: Occasional Past Drug Use History: Marijuana - Past Family History Father Family Medical History: No Reported History Mother Family Medical History: No Reported History Medications and Allergies Home Medications Medication Instructions Recorded Confirmed Type Hydrocodone/Acetaminophen [[place] 1 tab PO Q6HR PRN #10 tab 09/22/19 Rx 5-325] Allergies Allergy/AdvReac Type Severity Reaction Status Date / Time No Known Allergies Allergy Verified 09/21/19 18:07 Surgical - Exam Vital Signs Temp Pulse Resp BP Pulse Ox 98.3 F 114 H 20 129/58 100 09/21/19 15:06 09/21/19 15:06 09/21/19 15:06 09/21/19 15:06 09/21/19 15:06 - General Does still complain of mild left-sided pleuritic chest pain but states well controlled on current medication well developed, well nourished, no distress - Eyes PERRL, normal ocular movement - ENT no hearing loss - Neck no masses, no bruits, trachea midline - Respiratory Lungs sounds clear bilaterally. Respirations even, nonlabored, no paradoxical chest movement with respirations. Currently on room air with oxygen saturation 99%. Able to achieve 2000 mL on his incentive spirometry. - Cardiovascular S1, S2 present. Regular rate and rhythm, sinus rhythm on telemetry. Palpable peripheral pulses bilaterally. No edema present. No calf pain or tenderness noted. - Abdomen Abdomen: soft, non tender, bowel sounds - Genitourinary Deferred - Rectum Deferred - Integumentary Abrasions present to the left side of his face and left knee - Neurologic normal coordination, normal sensation - Musculoskeletal normal gait, normal posture - Psychiatric oriented to time, oriented to person, oriented to place, speech is normal, memory intact Results - Labs 09/22/19 06:20 09/22/19 06:20 Abnormal Lab Results - Last 24 Hours (Table) 09/21/19 09/21/19 09/21/19 Range/Units 06:55 15:22 15:22 WBC 20.5 H (3.8-10.6) k/uL Neutrophils # 13.1 H (1.3-7.7) k/uL Lymphocytes # 5.8 H (1.0-4.8) k/uL APTT (22.0-30.0) sec Creatinine (0.66-1.25) mg/dL Glucose 118 H (74-99) mg/dL POC Glucose (mg/dL) (75-99) mg/dL Plasma Lactic Acid Christian (0.7-2.0) mmol/L Total Bilirubin (0.2-1.3) mg/dL AST 70 H (17-59) U/L ALT (4-49) U/L Total Creatine Kinase (55-170) U/L CK-MB (CK-2) (0.0-2.4) ng/mL Urine Protein 1+ H (Negative) Urine Mucus Many H (None) /hpf Urine Opiates Screen Detected H (NotDetected) U Benzodiazepines Scrn Detected H (NotDetected) U Marijuana (THC) Screen Detected H (NotDetected) 09/21/19 09/21/19 09/21/19 Range/Units 15:22 15:22 15:33 WBC (3.8-10.6) k/uL Neutrophils # (1.3-7.7) k/uL Lymphocytes # (1.0-4.8) k/uL APTT (22.0-30.0) sec Creatinine (0.66-1.25) mg/dL Glucose (74-99) mg/dL POC Glucose (mg/dL) 131 H (75-99) mg/dL Plasma Lactic Acid Christian 3.6 H* (0.7-2.0) mmol/L Total Bilirubin (0.2-1.3) mg/dL AST (17-59) U/L ALT (4-49) U/L Total Creatine Kinase 714 H (55-170) U/L CK-MB (CK-2) 9.9 H (0.0-2.4) ng/mL Urine Protein (Negative) Urine Mucus (None) /hpf Urine Opiates Screen (NotDetected) U Benzodiazepines Scrn (NotDetected) U Marijuana (THC) Screen (NotDetected) 09/21/19 09/22/19 09/22/19 Range/Units 15:57 06:20 06:20 WBC 10.7 H (3.8-10.6) k/uL Neutrophils # (1.3-7.7) k/uL Lymphocytes # (1.0-4.8) k/uL APTT 21.2 L (22.0-30.0) sec Creatinine 0.54 L (0.66-1.25) mg/dL Glucose (74-99) mg/dL POC Glucose (mg/dL) (75-99) mg/dL Plasma Lactic Acid Christian (0.7-2.0) mmol/L Total Bilirubin 2.4 H (0.2-1.3) mg/dL AST 134 H (17-59) U/L ALT 59 H (4-49) U/L Total Creatine Kinase (55-170) U/L CK-MB (CK-2) (0.0-2.4) ng/mL Urine Protein (Negative) Urine Mucus (None) /hpf Urine Opiates Screen (NotDetected) U Benzodiazepines Scrn (NotDetected) U Marijuana (THC) Screen (NotDetected) Diabetes panel 09/21/19 09/22/19 Range/Units 15:22 06:20 Sodium 138 138 (137-145) mmol/L Potassium 3.7 3.8 (3.5-5.1) mmol/L Chloride 102 105 (98-107) mmol/L Carbon Dioxide 25 25 (22-30) mmol/L BUN 17 13 (9-20) mg/dL Creatinine 0.72 0.54 L (0.66-1.25) mg/dL Glucose 118 H 92 (74-99) mg/dL Calcium 9.2 8.8 (8.4-10.2) mg/dL AST 70 H 134 H (17-59) U/L ALT 47 59 H (4-49) U/L Alkaline Phosphatase 88 66 (38-126) U/L Total Protein 8.1 7.1 (6.3-8.2) g/dL Albumin 4.8 3.9 (3.5-5.0) g/dL Calcium panel 09/21/19 09/22/19 Range/Units 15: 06:20 Calcium 9.2 8.8 (8.4-10.2) mg/dL Albumin 4.8 3.9 (3.5-5.0) g/dL Pituitary panel 09/21/19 09/22/19 Range/Units 15:22 06:20 Sodium 138 138 (137-145) mmol/L Potassium 3.7 3.8 (3.5-5.1) mmol/L Chloride 102 105 (98-107) mmol/L Carbon Dioxide 25 25 (22-30) mmol/L BUN 17 13 (9-20) mg/dL Creatinine 0.72 0.54 L (0.66-1.25) mg/dL Glucose 118 H 92 (74-99) mg/dL Calcium 9.2 8.8 (8.4-10.2) mg/dL Adrenal panel 09/21/19 09/22/19 Range/Units 15:22 06:20 Sodium 138 138 (137-145) mmol/L Potassium 3.7 3.8 (3.5-5.1) mmol/L Chloride 102 105 (98-107) mmol/L Carbon Dioxide 25 25 (22-30) mmol/L BUN 17 13 (9-20) mg/dL Creatinine 0.72 0.54 L (0.66-1.25) mg/dL Glucose 118 H 92 (74-99) mg/dL Calcium 9.2 8.8 (8.4-10.2) mg/dL Total Bilirubin 1.0 2.4 H (0.2-1.3) mg/dL AST 70 H 134 H (17-59) U/L ALT 47 59 H (4-49) U/L Alkaline Phosphatase 88 66 (38-126) U/L Total Protein 8.1 7.1 (6.3-8.2) g/dL Albumin 4.8 3.9 (3.5-5.0) g/dL - Imaging Chest x-ray: report reviewed, image reviewed CT scan - chest: report reviewed, image reviewed Assessment and Plan Assessment: 1. Left-sided rib fractures with small hemothorax, status post fall from the roof. 2. Occasional EtOH and marijuana use, no alcohol present on admission Plan: The patient was seen and examined at the bedside with Dr. Dhillon. Chart/diagnostics were reviewed. At this time no surgical intervention is warranted, patient may be discharged to home from cardiothoracic surgery standpo int. May follow up in the office next week for continued monitoring. Medical management per primary, trauma services. Thank you Dr. Yu for this consult, please call us with any further questions Time with Patient: Greater than 30
[2019-09-22 15:38] VITALS: BP 135/85; PULSE 79; RESP 16
== END 2019-09-22 16:41 | disposition home or self-care (01) | DRG 200 ==
LOC: EC 14:59 → 3SCARD 16:37
PROVIDERS: ADMIT Surgery; ATTEND Surgery
DX: S27.2XXA Traumatic hemopneumothorax, initial encounter (principal); E87.2 Acidosis; J98.11 Atelectasis; S22.42XA Multiple fractures of ribs, left side, initial encounter for closed fracture; D72.829 Elevated white blood cell count, unspecified; F17.200 Nicotine dependence, unspecified, uncomplicated; S80.212A Abrasion, left knee, initial encounter; S00.81XA Abrasion of other part of head, initial encounter; W13.2XXA Fall from, out of or through roof, initial encounter
CPT/HCPCS: 36415; 70450; 71045; 71046; 71260; 72125; 72170; 74177; 80053; 80306; 80320; 81001; 82150; 82550; 82553; 83605; 83690; 84484; 85025; 85610; 85730; 86850; 86900; 86901; 93005; 96374; 96375; 99285

== ENCOUNTER → 2019-09-28 | Outpatient (CLI) | payer BC ==
--- NOTE | 2019-09-28 12:18 | XR ---
EXAMINATION TYPE: XR chest 2V DATE OF EXAM: 09/28/2019 COMPARISON: Chest x-ray [address] chest one week ago. HISTORY: Left rib fractures and hemothorax. TECHNIQUE: Frontal and lateral views of the chest are obtained. FINDINGS: There is patchy posterior left basilar atelectasis and/or infiltrate. Right lung is clear. No pleural effusion or pneumothorax seen bilaterally. The cardiac silhouette size is within normal l imits. Displaced left lateral third rib fracture redemonstrated. IMPRESSION: Patchy posterior left basilar atelectasis and/or infiltrate.
== END | disposition home or self-care (01) ==
LOC: RADXRMAIN 11:57
PROVIDERS: ATTEND Surgery
DX: Z00.00 Encounter for general adult medical examination without abnormal findings (principal)
CPT/HCPCS: 71046